=== PATIENT | male | born 1935 | race Caucasian/White ===

== ENCOUNTER → 2019-02-25 | Outpatient (CLI) | payer MEDICARE, BC ==
--- NOTE | 2019-02-25 14:43 | US ---
EXAMINATION TYPE: US carotid duplex BILAT DATE OF EXAM: 02/25/2019 COMPARISON: NONE CLINICAL HISTORY: 83-year-old male I65.29 Carotid Stenosis. Known right ICA occluded x 8-10 years TECHNIQUE: Carotid duplex ultrasound examination. Direct Doppler criteria was utilized. FINDINGS: EXAM MEASUREMENTS: RIGHT: Peak Systolic Velocity (PSV) cm/sec ----- Right CCA: 47.6 ----- Right ICA: n/a ----- Right ECA: 98.6 ICA/CCA ratio: n/a RIGHT: End Diastole cm/sec ----- Right CCA: 0.0 ----- Right ICA: n/a ----- Right ECA: 11.4 LEFT: Peak Systolic Velocity (PSV) cm/sec ----- Left CCA: 81.5 ----- Left ICA: 98.4 ----- Left ECA: 79.8 ICA/CCA ratio: 1.2 LEFT: End Diastole cm/sec ----- Left CCA: 27.2 ----- Left ICA: 39.1 ----- Left ECA: 19.3 VERTEBRALS (direction of flow): Right Vertebral: Antegrade Left Vertebral: Antegrade Rhythm: Normal Microbiology Instructor notes: Occluded right ICA, bilateral intimal thickening, minimal plaque left bulb, no brenda vated velocities, no significant stenosis. IMPRESSION: 1. Known occlusion of the right ICA. 2. No hemodynamically significant ICA stenosis on the left. Criteria for Assigning % of Stenosis / Diameter reduction (Estimation based on the indirect measurements of the internal carotid artery velocities (ICA PSV). 1. Normal (no stenosis)=ICA PSV < 125 cm/s: ratio < 2.0: ICA EDV<40 cm/s. 2. Less than 50% stenosis=ICA PSV < 125 cm/s: ratio < 2.0: ICA EDV<40 cm/s. 3. 50 to 69% stenosis=ICA PSV of 125 to 230 cm/s: ration 2.0 ? 4.0: ICA EDV 40-100 cm/s. 4. Greater than 70% stenosis to near occlusion= ICA PSV > 230 cm/s: ratio > 4.0: ICA EDV > 100 cm/s. 5. Near occlusion= ICA PSV velocities may be low or undetectable: variable ratio and ICA EDV. 6. Total occlusion=unable to detect flow.
== END | disposition home or self-care (01) ==
LOC: RADUSWWP 12:34
PROVIDERS: ATTEND Internal Medicine
DX: I65.21 Occlusion and stenosis of right carotid artery (principal)
CPT/HCPCS: 93880

== ENCOUNTER → 2020-04-14 | Outpatient (CLI) | payer MEDICARE, BC ==
--- NOTE | 2020-04-15 08:03 | US ---
EXAMINATION TYPE: US carotid duplex BILAT DATE OF EXAM: 04/14/2020 COMPARISON: 02/25/2019 CLINICAL HISTORY: I65.29 CAROTID STENOSIS. Stenosis, history of right ICA occlusion EXAM MEASUREMENTS: RIGHT: Peak Systolic Velocity (PSV) cm/sec ----- Right CCA: 44.1 ----- Right ICA: ----- Right ECA: 125.3 ICA/CCA ratio: RIGHT: End Diastole cm/sec ----- Right CCA: 0.0 ----- Right ICA: ----- Right ECA: 18.7 LEFT: Peak Systolic Velocity (PSV) cm/sec ----- Left CCA: 87.5 ----- Left ICA: 97.7 ----- Left ECA: 75.1 ICA/CCA ratio: 1.1 LEFT: End Diastole cm/sec ----- Left CCA: 24.8 ----- Left ICA: 30.0 ----- Left ECA: 7.4 VERTEBRALS (direction of flow): Right Vertebral: Antegrade Left Vertebral: Antegrade Rhythm: Normal Bilateral intimal thickening, plaque bilateral bulb, no elevated velocities, occluded right ICA Right thyroid: 2.6 x 1.9 x 2.2cm nodule Left neck: 2.3 x 1.0 x 1.3cm lymph node IMPRESSION: 1. No flow is identified within the right internal carotid artery compatible with previous obstructio n. 2. Intimal thickening within the left carotid system without significant flow-limiting stenosis. 3. Incidental note is made of thyroid nodules and a left neck node. Criteria for Assigning % of Stenosis / Diameter reduction (Estimation based on the indirect measurements of the internal carotid artery velocities (ICA PSV). 1. Normal (no stenosis)=ICA PSV < 125 cm/s: ratio < 2.0: ICA EDV<40 cm/s. 2. Less than 50% stenosis=ICA PSV < 125 cm/s: ratio < 2.0: ICA EDV<40 cm/s. 3. 50 to 69% stenosis=ICA PSV of 125 to 230 cm/s: ration 2.0 ? 4.0: ICA EDV 40-100 cm/s. 4. Greater than 70% stenosis to near occlusion= ICA PSV > 230 cm/s: ratio > 4.0: ICA EDV > 100 cm/s. 5. Near occlusion= ICA PSV velocities may be low or undetectable: variable ratio and ICA EDV. 6. Total occlusion=unable to detect flow.
== END | disposition home or self-care (01) ==
LOC: RADUSWWP 15:53
PROVIDERS: ATTEND Internal Medicine
DX: I77.89 Other specified disorders of arteries and arterioles (principal)
CPT/HCPCS: 93880

== ENCOUNTER → 2020-04-20 | Outpatient (CLI) | payer MEDICARE, BC ==
[2020-04-20 12:55] LABS: Appearance,Urine Clear (Clear); Bilirubin,Urine Negative (Negative); Blood,Urine Negative (Negative); Color,Urine Yellow; Glucose,Urine (UA) Negative (Negative); HCT 44.2 % (39.0-53.0); HGB 13.9 gm/dL (13.0-17.5); Ketones,Urine Negative (Negative); Leukocyte Esterase,Urine Negative (Negative); MCH 34.3 pg (25.0-35.0); MCHC 31.6 g/dL (31.0-37.0); MCV 108.6 fL (80.0-100.0); Macrocytosis Moderate; Mean Platelet Volume 8.5; Nitrite,Urine Negative (Negative); PH, Urine 5.5 (5.0-8.0); Platelet Count 284 k/uL (150-450); Protein,Urine Negative (Negative); RBC 4.07 m/uL (4.30-5.90); RDW 12.1 % (11.5-15.5); Specific Gravity,Urine 1.023 (1.001-1.035); Urobilinogen,Urine <2.0 mg/dL (<2.0); WBC 6.2 k/uL (3.8-10.6)
[2020-04-20 13:01] LABS: INR 0.9 (<1.2); Partial Thromboplastin Time 25.5 sec (22.0-30.0); Prothrombin Time 9.7 sec (9.0-12.0)
[2020-04-20 13:06] LABS: ALT 18 U/L (4-49); AST 31 U/L (17-59); African American GFR (CKD) >90 (>60 ml/min/1.73 sqM); Alkaline Phosphatase 95 U/L (38-126); Anion Gap 6 mmol/L; Blood Urea Nitrogen 20 mg/dL (9-20); Carbon Dioxide 29 mmol/L (22-30); Chloride 104 mmol/L (98-107); Glucose 100 mg/dL (74-99); Non-African American GFR(CKD) 88 (>60 ml/min/1.73 sqM); Potassium 4.6 mmol/L (3.5-5.1); Sodium 139 mmol/L (137-145); Total Bilirubin 0.6 mg/dL (0.2-1.3); Total Protein 6.9 g/dL (6.3-8.2)
== END | disposition home or self-care (01) ==
LOC: LABPAT 11:03
PROVIDERS: ATTEND Orthopaedic Surgery Sports Medicine
DX: Z01.818 Encounter for other preprocedural examination (principal)
CPT/HCPCS: 36415; 80053; 81003; 85027; 85610; 85730; 87070

== ENCOUNTER 2020-04-28 09:51 | Day surgery (SDC) | payer MEDICARE, BC ==
[2020-04-21 13:01] VITALS: BMI 27.8
[~2020-04-28 09:51] MED LIST: ACETAMINOPHEN TAB 500 MG TAB PO ONE; GABAPENTIN 300 MG CAP PO ONE; MELOXICAM 7.5 MG TAB PO ONE; ONDANSETRON 4 MG/2 ML VIAL IVP ONE; ROPIVACAINE 246.25 MG, EPINEPHrine 0.5 MG, KETOROLAC 30 MG, cloNIDine HCL/PF 80 MCG, WA... MISCELLANE ONE; TRANEXAMIC ACID 1,000 MG in SODIUM CHLORIDE 0.9% 100 ML IVPB ONE
[2020-04-28] MEDS ORDERED: ONDANSETRON 4 MG/2 ML VIAL ONE (10:24)
[2020-04-28] MEDS ORDERED: ACETAMINOPHEN TAB 500 MG TAB ONE (10:24)
[2020-04-28] MEDS: LACTATED RINGERS 1,000 ML IV SCH ×2 (10:59→16:23)
[2020-04-28] MEDS ORDERED: LIDOCAINE 1% (10MG/ML) FOR IV START INTRADERMA ONE (11:00)
[2020-04-28] MEDS ORDERED: MIDAZOLAM 2 MG/2 ML VIAL IV ONE (11:25)
[2020-04-28] MEDS ORDERED: fentaNYL (PF) 50 MCG/ML 2 ML AMP IV ONE (11:25)
[2020-04-28] MEDS ORDERED: HYDROcodone/APAP 5-325MG 1 EACH TAB PO PRN (12:17)
[2020-04-28] MEDS ORDERED: traMADol 50 MG TAB PO PRN (12:17)
[2020-04-28] MEDS ORDERED: ACETAMINOPHEN TAB 325 MG TAB PO PRN (12:17)
[2020-04-28] MEDS ORDERED: HYDROmorphone 0.5 MG/0.5 ML SYRINGE IVP PRN ×3 (12:17)
[2020-04-28] MEDS ORDERED: diazePAM 5 MG TAB PO PRN (12:17)
[2020-04-28] MEDS ORDERED: MAGNESIUM HYDROXIDE 2,400 MG/10 ML CUP PO PRN (12:17)
[2020-04-28] MEDS ORDERED: ONDANSETRON 4 MG/2 ML VIAL IVP PRN (12:17)
[2020-04-28] MEDS ORDERED: NALOXONE 0.4 MG/ML 1 ML VIAL IV PRN (12:17)
[2020-04-28] MEDS ORDERED: TEMAZEPAM 15 MG CAP PO PRN (12:17)
[2020-04-28] MEDS ORDERED: NA PHOS,M-B/NA PHOS,DI-BA 133 ML ENEMA RECTAL PRN (12:17)
[2020-04-28] MEDS ORDERED: bisacodyL 10 MG SUPP RECTAL PRN (12:17)
[2020-04-28] MEDS ORDERED: SUCCINYLCHOLINE CHLORIDE 100 MG/5 ML SYR IV ONE (12:29)
[2020-04-28] MEDS ORDERED: LIDOCAINE 1% INJ 10MG/ML (20 ML MDV) ONE (12:29)
[2020-04-28] MEDS ORDERED: fentaNYL (PF) 50 MCG/ML 2 ML AMP ONE (12:29)
[2020-04-28] MEDS ORDERED: MIDAZOLAM 2 MG/2 ML VIAL ONE (12:29)
[2020-04-28] MEDS ORDERED: PROPOFOL 10 MG/ML 20 ML VIAL IV ONE (12:29)
[2020-04-28] MEDS ORDERED: ROCURONIUM BROMIDE 10 MG/ML 5 ML VIAL IV ONE (12:29)
[2020-04-28] MEDS ORDERED: PHENYLEPHRINE-0.9% NACL SYG 1 MG/10 ML SYRINGE ONE (12:29)
[2020-04-28] MEDS ORDERED: LACTATED RINGERS 1,000 ML IV ONE ×2 (12:50→14:07)
[2020-04-28] MEDS ORDERED: ceFAZolin 3,000 MG in SODIUM CHLORIDE 0.9% IRRIGATIO 3,000 ML IRRIGATION ONE (13:02)
[2020-04-28] MEDS ORDERED: ROPIVACAINE 0.2%-NS ON-Q PUMP 1,090 MG, EMPTY PAIN BALL 1 EACH MISCELLANE PRN (14:29)
[2020-04-28] MEDS: HYDROmorphone 0.5 MG/0.5 ML SYRINGE IVP PRN ×4 (14:37→15:11)
--- NOTE | 2020-04-28 14:50 | XR ---
EXAMINATION TYPE: XR knee limited LT DATE OF EXAM: 04/28/2020 COMPARISON: NONE HISTORY: 85-year-old male evaluation for postoperative abnormality in alignment TECHNIQUE: 2 views FINDINGS: Images show placement of left total knee arthroplasty. Both distal femoral and proximal tibial compon ents of the prosthesis appear well seated without periprosthetic fracture. Alignment grossly anatomic . Anterior soft tissue swelling with scattered soft tissue air as well as intra-articular air and keerthi nt fluid compatible with recent operation. IMPRESSION: Uncomplicated postoperative appearance left total knee arthroplasty.
[2020-04-28] MEDS ORDERED: diphenhydrAMINE 50 MG/ML 1 ML VIAL IVP ONE (15:16)
--- NOTE | 2020-04-28 16:04 | P.ANPRN ---
Procedure Note - Anesthesia - Nerve Block Performed Left Adductor Canal Infusion Time Out Performed: Yes Date of Procedure: 04/28/20 Procedure Start Time: 11:25 Procedure Stop Time: 11:38 Location of Patient: PreOp Indication: Acute Post-Operative Pain, Dx/Pain Location, Requested by Surgeon Sedation Type: Sedate with meaningful contact maintained Preparation: Sterile Prep, Sterile Dressing Position: Supine Catheter: Indwelling Needle Types: Pajunk Needle Gauge: 21 Ultrasound used to visualize needle placement: Yes Ultrasound used to observe medication spread: Yes Injectate: 0.5% Ropivacaine (see comment for volume) (20ml) Blood Aspirated: No Pain Paresthesia on Injection Noted: No Resistance on Injection: Normal
--- NOTE | 2020-04-28 16:59 | P.CONS ---
History of Present Illness - Reason for Consult Consult date: 04/21/20 Medical management - Chief Complaint Left knee osteoarthritis - History of Present Illness This is a 85-year-old male with past medical history noted below who was admitted to the hospital for elective total left knee arthroplasty. Patient is postoperative day #0. He tolerated the procedure well. No reported complications. He does not have any complaints or concerns. I was asked to see him for medical management. Review of Systems Review of system: 14 points review of systems were obtained and were negative except to what were mentioned in the HPI. Past Medical History Past Medical History: Cancer, Hyperlipidemia, Hypertension, Osteoarthritis (OA), Prostate Disorder Additional Past Medical History / Comment(s): PROSTATE CANCER History of Any Multi-Drug Resistant Organisms: None Reported Past Surgical History: Hernia Repair, Joint Replacement Additional Past Surgical History / Comment(s): TOTAL RIGHT HIP, TOTAL LEFT HIP, INGUINAL HERNIA REPAIR, TLK Past Anesthesia/Blood Transfusion Reactions: No Reported Reaction Past Psychological History: No Psychological Hx Reported Smoking Status: Former smoker Past Alcohol Use History: Rare Additional Past Alcohol Use History / Comment(s): STARTED SMOKING AT AGE 18 QUIT AT AGE 33 SMOKED 1PPD Past Drug Use History: None Reported - Past Family History Sister(s) Family Medical History: Cancer Medications and Allergies Home Medications Medication Instructions Recorded Confirmed Type Cholecalciferol [Vitamin D3 (25 2,000 unit PO DAILY 04/21/20 04/28/20 History Mcg = 1000 Iu)] Clopidogrel Bisulfate [Plavix] 75 mg PO DAILY 04/21/20 04/28/20 History Finasteride [Proscar] 5 mg PO DAILY 04/21/20 04/28/20 History Lisinopril [Zestril] 10 mg PO DAILY 04/21/20 04/28/20 History Simvastatin 40 mg PO Q48H 04/21/20 04/28/20 History Allergies Allergy/AdvReac Type Severity Reaction Status Date / Time No Known Allergies Allergy Verified 04/28/20 10:47 Physical Exam Vitals: Vital Signs Temp Pulse Pulse Resp BP BP Pulse Ox 04/28/20 15:50 82 16 160/91 100 04/28/20 15:35 81 16 170/83 99 04/28/20 15:20 80 16 164/85 99 04/28/20 15:05 85 16 167/86 100 07/09/20 14:50 82 18 170/79 100 04/28/20 14:35 85 16 173/67 100 04/28/20 14:19 97.0 F L 88 17 170/81 95 04/28/20 11:45 78 16 150/78 99 04/28/20 10:21 98.3 F 85 16 170/83 95 04/28/20 10:17 16 Intake and Output 04/28/20 04/28/20 04/28/20 06:59 14:59 22:59 Intake Total 2050 300 Output Total 100 Balance 1950 300 Intake: IV 2050 300 Output: Estimated Blood Loss 100 Other: Weight 93 kg 93 kg General: The patient is awake and alert, in no distress Eye: there is normal conjunctiva bilaterally. Neck: The neck is supple, there is no JVD. Cardiovascular: Normal S1-S2, no S3-S4, no murmurs. Respiratory: Lungs clear to auscultation bilaterally Gastrointestinal: Abdomen is soft, nontender Musculoskeletal: There is no pedal edema. Neurological:. Speech is normal. Skin: Skin is warm and dry Assessment and Plan Assessment: 1. Postoperative day #0 status post total left knee arthroplasty, postoperative care, DVT prophylaxis, and pain control per orthopedic protocol. PT/OT evaluation 2. History of stroke: Maintained on Plavix daily 3. Essential hypertension, blood pressure not well controlled. Resume home regimen and continue to monitor closely 4. Hyperlipidemia on Zocor, continue Thank you very much for the consultation. We'll continue to follow up on the patient closely with you.
--- NOTE | 2020-04-28 20:48 | OP ---
OPERATIVE REPORT DATE OF PROCEDURE: 04/28/2020 SURGEON: Elijah Tellez MD. SCHOOL LEADER: Lalo Roper PA-C. PREOPERATIVE DIAGNOSIS: Left knee osteoarthrosis. POSTOPERATIVE DIAGNOSIS: Left knee osteoarthrosis. OPERATION: Left total knee arthroplasty. ANESTHESIA: General endotracheal. ESTIMATED BLOOD LOSS: 100 mL. TOURNIQUET: Tourniquet time was 44 minutes at 250 mmHg. COMPLICATIONS: None apparent. DRAINS: None. DISPOSITION: Post-Anesthesia Care Unit. INDICATIONS: Royal is an 85-year-old male with longstanding history of left knee pain. History and physical examination are consistent with advanced left knee osteoarthrosis. He has been through significant nonoperative management up to this point. Further treatment options were discussed and he has decided to go forward with left total knee arthroplasty. The risks of the procedure were discussed with him in detail. These risks include but are not limited to risk of infection, nerve damage, bleeding, pain, and a small risk of deep vein thrombosis which could lead to fatal pulmonary embolism. There is also a risk of loosening of the implant which could require revision operation. The patient understands these risks. All of his questions were answered to his satisfaction. Appropriate informed consent was obtained. DESCRIPTION OF THE PROCEDURE: The patient was identified in the preoperative holding area. Surgical site was marked by both the patient and myself. He was given 2 grams of Ancef IV for prophylactic purposes. He was then transferred to the operative suite, where he was placed supine on the operating room table. A spinal anesthetic was then administered and dosed per the anesthesia department without apparent complication. Examination under anesthesia was then performed. The patient was approximately 5 degrees shy of full extension. He had 100 degrees of flexion, and the medial collateral ligament, lateral collateral ligament and posterior cruciate ligaments were stable. Tourniquet was then placed high on the left upper thigh, well padded in preparation for surgery. The patient's left lower extremity was then prepped and draped in the usual sterile fashion. A standard surgical pause was then undertaken to ensure that we were operating on the correct site and that appropriate preoperative antibiotics had been given. All staff in the room were in agreement and we proceeded. The outlines of the patella were marked with a surgical pen. A planned 12 cm vertical incision centered over the patella was marked with a surgical pen. The leg was then exsanguinated with an Esmarch dressing. The knee was then flexed and the tourniquet was inflated to 250 mmHg. The total tourniquet time for the procedure was 44 minutes. Incision was then made with a 10-blade scalpel. Dissection was carried down sharply to the overlying fascia. Great care was taken to minimize the skin flaps. The knee was then exposed using a standard medial parapatellar approach. A small cuff of quadriceps tendon was then left for suturing. He was in a bit of varus preoperatively. A standard medial release was then made. The superficial medial collateral ligament was dissected off of the bone and around to the posterior aspect of the proximal tibia. The medial meniscus was then excised as well. The lateral meniscus was also released anteriorly. The leg was then externally rotated. The patella was everted. The knee was flexed. Retractors were then placed to protect the collateral ligaments. I then proceeded to remove the infrapatellar fat pad. This was excised sharply tangentially with the fibers of the patellar tendon. I then proceeded to remove the peripheral osteophytes. This was done with a rongeur. I then proceeded with the distal femoral resection. He did have a flexion contracture. A planned 11 mm resection was then done. The femoral canal was then entered in the midline of the femur approximately 10 mm anterior to the origin of the posterior cruciate ligament. The lisa was then advanced down to the center of the femur and placed intramedullary. Based on the preoperative radiographs, the angle between the anatomic and mechanical axis of the femur was approximately 4-5 degrees. The valgus angle of the distal femoral cutting guide was then set at 4 degrees for the left knee. The distal femoral cutting guide was then advanced over the intramedullary lisa. This was seated firmly against the femur. I then, as mentioned, planned to take 11 mm off the distal femur. The cutting block was then secured onto the femur with pins. The jig was then removed and the distal femoral cut was made through the slot of the block. The pins were then removed and the distal femoral cutting block was removed. The accuracy of the distal femoral cuts was checked with 2 flat bars. I then proceeded with femoral sizing. The posterior referencing sizing guide was held firmly against the resected distal surface of the femur. The posterior condyles were resting on the posterior plane of the guide. The sizing stylus was then placed onto the anterior femur. The size was measured as a size 10. I then assessed for femoral rotation. The plan was for 3 degrees of external rotation. Three degrees of external rotation was placed onto the jig. These holes were then marked. I then confirmed the rotation by 3 separate methods. This was done using the epicondylar axis as well as Whitesides line and posterior referencing. It was deemed that the external rotation was proper. I then went forward with placing the femoral cutting block. This was placed over the previously placed pin holes. The Jones wing was then placed onto the anterior slots to ensure that we would not notch the anterior femur with the anterior femoral cut. I then proceeded with the anterior femoral cut. This was flush with the anterior cortex of the femur. Posterior cuts were then made followed by the anterior chamfer cut, and then the posterior chamfer cut. The cutting block was then removed. Throughout the resection, collateral ligaments were protected with retractors. I then placed a trial size 10 femur. It fit very nicely medial to lateral and fit flush with the distal end of the femur. The drill holes were then made. I then proceeded with the tibial cut. I planned for a cruciate-retaining knee. The guide was placed and set for varus, valgus and for slope. The height was set for an approximate 2 mm resection from the medial tibial plateau, which was the lower side. I was happy with the alignment and the amount of resection. Cutting block was then pinned to the proximal tibia. The alignment lisa was removed and the proximal tibia was resected with a reciprocating saw. Again this was done with retractors protecting the collateral ligaments as well as the posterior cruciate ligament. I then proceeded to evaluate the flexion and extension gaps. A 10 mm block was then placed. The flexion and extension gaps were equal. I then proceeded with resection of the posterior osteophytes. He had very extensive posterior osteophytes. This was done using a curved osteotome. This resected the posterior osteophytes, and posterior capsule stripping was done off the posterior aspect of the femur at this time. The osteophytes were then removed. I then proceeded with resection of the patella. The thickness of the patella was measured using the caliper. The thickness was 25 mm. Thickness of the anticipated patellar dome was then taken into account. Resection was then performed and confirmed to be equal in 4 quadrants using a caliper. Approximately 14 mm of bone remained after resection. A 35 x 9 standard patellar trial was then placed. The holes were drilled and the trial was then placed. I then proceeded with sizing the tibial plate. A size F tibial plate fit very nicely. I then placed the trial femur and the tibial tray and the patellar button. A 10 mm trial tibial insert was also placed. The components fit very nicely. He had full extension and flexion. The extension and flexion gaps were equal and stable to both varus and valgus stress. The patella tracked appropriately. The tibial tray rotation was then marked with a Bovie. This was externally rotated properly. I then proceeded with tibial preparation. I first drilled the femoral holes and removed the femoral component. The tibial tray was then set for proper external rotation as well as mediolateral placement onto the tibia. It was then pinned into place. I then proceeded with punching the keel. I then decided to proceed with cementing of all of our components. The knee was thoroughly irrigated with sterile saline solution via pulse lavage. The lateral geniculate artery was identified and cauterized. All blood was removed from the bone of the tibia, femur and patella with pulse lavage. I then proceeded with cementing. Two packs of antibiotic bone cement were prepared on the back table by the assistant professor surgical technology. I then proceeded with cementing of the tibia first. Cement was impacted into the keel as well as deeply seated into the bone. A second coat of cement was then placed. The tibia was then impacted into place. Excess cement was removed with Alena's and jokers. I then proceeded with cementing of the femoral component. The femoral component was also cemented using standard technique. Excess cement was removed. A 10 mm trial insert was then placed into the knee. It was brought into full extension with a constant axial load placed until the cement had hardened. The patellar component was then cemented. This was held firmly with a compressive device until the cement had dried. When the cement had dried, the knee was taken out of extension. All excess cement was removed from around the prosthesis. I then trialed the knee with a 10 mm insert. The flexion and extension gaps were appropriate. The knee was stable. It came into full extension. I decided to go forward with a 10 mm cross-linked cruciate-retaining tibial insert. Polyethylene was then placed onto the tibial tray and locked into place. The knee was then reduced. The knee was again further irrigated with sterile saline solution with antibiotic added. The tourniquet was then deflated. The total tourniquet time for the procedure was 44 minutes at 250 mmHg. Final components were a Luis Persona size 10 cruciate-retaining femoral component, a size F tibial tray, a 10 mm medial-congruent cruciate-retaining polyethylene insert, and a 35 x 9 mm patella. I then proceeded with closure. Again the knee was thoroughly irrigated. The quadriceps tendon and the medial retinaculum were reapproximated with #2 Ethibond suture. The extensor mechanism was then closed with a running #2 Quill suture. Subcutaneous tissues were closed with 2-0 Vicryl interrupted suture. The skin was closed with a running 3-0 Quill suture. Dermabond was applied to the incision. Sterile compressive dressings were then applied. All sponge and needle counts were deemed correct prior to closure. The patient tolerated the procedure without apparent complication. He was transferred to the recovery room in stable condition. MMODL / IJN: [id number] /
[2020-04-28] MEDS ORDERED: SENNOSIDES-DOCUSATE SODIUM 1 EACH TAB PO SCH (21:00)
[2020-04-28] MEDS ORDERED: ATORVASTATIN 20 MG TAB PO SCH (21:00)
[2020-04-29] MEDS: HYDROcodone/APAP 10-325MG 1 EACH TAB PO PRN ×3 (01:21→13:25)
[2020-04-29] MEDS: LACTATED RINGERS 1,000 ML IV SCH ×3 (02:09→07:10)
--- NOTE | 2020-04-29 06:09 | P.PN ---
Progress Note - Text Progress Note Date: 04/29/20 85-year-old male status post left knee total arthroplasty with On-Q pain pump. Postop day #1. VAS ranges from a 4-7 out of 10 in severity. Pain mostly located in the lateral and posterior components of the knee. Good pain relief medially and anteriorly. Patient has been ambulating to the bathroom, and tolerating weightbearing. Overall patient doing okay
[2020-04-29 06:10] VITALS: RESP 16
[2020-04-29 06:16] LABS: Basophils % (A) 0 %; Eosinophils # (A) 0.1 k/uL (0-0.7); Eosinophils % (A) 2 %; HCT 36.1 % (39.0-53.0); HGB 11.7 gm/dL (13.0-17.5); Lymphocytes # (A) 0.9 k/uL (1.0-4.8); Lymphocytes % (A) 16 %; MCH 34.6 pg (25.0-35.0); MCHC 32.5 g/dL (31.0-37.0); MCV 106.6 fL (80.0-100.0); Macrocytosis Slight; Monocytes # (A) 0.5 k/uL (0-1.0); Monocytes % (A) 8 %; Neutrophils # (A) 4.1 k/uL (1.3-7.7); Neutrophils % (A) 71 %; Platelet Count 191 k/uL (150-450); RBC 3.38 m/uL (4.30-5.90); WBC 5.7 k/uL (3.8-10.6)
[2020-04-29 06:24] LABS: African American GFR (CKD) >90 (>60 ml/min/1.73 sqM); Anion Gap 5 mmol/L; Blood Urea Nitrogen 14 mg/dL (9-20); Calcium 8.2 mg/dL (8.4-10.2); Carbon Dioxide 27 mmol/L (22-30); Chloride 101 mmol/L (98-107); Glucose 96 mg/dL (74-99); Non-African American GFR(CKD) >90 (>60 ml/min/1.73 sqM); Potassium 4.4 mmol/L (3.5-5.1); Sodium 133 mmol/L (137-145)
[2020-04-29] MEDS ORDERED: FINASTERIDE 5 MG TAB PO SCH (09:00)
[2020-04-29] MEDS ORDERED: CHOLECALCIFEROL 1,000 UNIT TAB PO SCH (09:00)
[2020-04-29] MEDS ORDERED: lisinopriL 10 MG TAB PO SCH (09:00)
[2020-04-29] MEDS ORDERED: CLOPIDOGREL 75 MG TAB PO SCH (09:00)
[2020-04-29 09:19] VITALS: BP 166/85; PULSE 80; TEMP 98.5
--- NOTE | 2020-04-29 09:22 | P.DS ---
Providers Expected date of discharge: 04/29/20 Attending physician: Elijah Tellez Consults: 04/28/20 12:17 Consult Physician Routine Consulting Provider: Steffi Flores Consult Reason/Comments: post op medical management Do you want consulting provider notified?: Yes Primary care physician: Loy Figueroa - Discharge Diagnosis(es) (1) S/P total knee arthroplasty Patient was admitted to the OR on 04/28/2020 to undergo a left total knee arthroplasty. He had failed conservative measures as an outpatient and desired to proceed with elective surgery after given informed consent. He underwent the above procedure which he tolerated well without complication. Postoperative hospital course has remained without complication. On day of discharge he is afebrile, vital signs stable, labs within acceptable ranges, tolerating by mouth meds and diet, voiding without difficulty, positive flatus, denies abdominal pain or calf pain, pain is controlled on oral pain medication and has no new complaints. Wound is benign, neurovascular status is intact, calf is soft and nontender, abdomen soft and nontender. Review of systems is negative for numbness, tingling, fever, chills, chest pain, shortness of breath, nausea, vomiting, dizziness, headaches, slurred speech or other. Current Visit: Yes Status: Acute Priority: Medium Patient Condition at Discharge: Good Plan - Discharge Summary Discharge Rx Participant: Yes New Discharge Prescriptions: New HYDROcodone/APAP 7.5-325MG [Nada 7.5-325] 1 - 2 each PO Q6HR PRN #56 tab PRN Reason: Pain No Action Cholecalciferol [Vitamin D3 (25 Mcg = 1000 Iu)] 2,000 unit PO DAILY Simvastatin 40 mg PO Q48H Finasteride [Proscar] 5 mg PO DAILY Lisinopril [Zestril] 10 mg PO DAILY Clopidogrel Bisulfate [Plavix] 75 mg PO DAILY Discharge Medication List Cholecalciferol [Vitamin D3 (25 Mcg = 1000 Iu)] 2,000 unit PO DAILY 04/21/20 [History] Clopidogrel Bisulfate [Plavix] 75 mg PO DAILY 04/21/20 [History] Finasteride [Proscar] 5 mg PO DAILY 04/21/20 [History] Lisinopril [Zestril] 10 mg PO DAILY 04/21/20 [History] Simvastatin 40 mg PO Q48H 07/02/20 [History] HYDROcodone/APAP 7.5-325MG [Nada 7.5-325] 1 - 2 each PO Q6HR PRN #56 tab 04/29/20 [Rx] Follow up Appointment(s)/Referral(s): Elijah Tellez MD [STAFF PHYSICIAN] - 10 Days Activity/Diet/Wound Care/Special Instructions: Keep wound clean and dry Take meds as directed Follow-up with Dr. Tellez in office Weight bear as tolerated May shower in 3 days if no bleeding Discharge Disposition: HOME WITH HOME HEALTH SERVICES
--- NOTE | 2020-04-29 09:35 | P.PN ---
Subjective Progress Note Date: 04/29/20 Patient is doing fairly well today. Pain is not well controlled. Objective - Vital Signs Vital signs: Vital Signs Temp 98.5 F 04/29/20 07:00 Pulse 80 04/29/20 07:00 Resp 16 04/29/20 07:00 BP 166/85 04/29/20 07:00 Pulse Ox 96 04/29/20 07:00 Intake & Output 04/28/20 04/29/20 04/29/20 18:59 06:59 18:59 Intake Total 2351 200 Output Total 100 875 350 Balance 2251 -875 -150 Weight 93 kg Intake: IV 2351 Oral 200 Output: Urine 875 350 Estimated Blood Loss 100 Other: Voiding Method Urinal - Exam General: The patient is awake and alert, in no distress Eye: there is normal conjunctiva bilaterally. Neck: The neck is supple, there is no JVD. Cardiovascular: Normal S1-S2, no S3-S4, no murmurs. Respiratory: Lungs clear to auscultation bilaterally Gastrointestinal: Abdomen is soft, nontender Musculoskeletal: There is no pedal edema on the right. +2 edema on the left Neurological:. Speech is normal. Skin: Skin is warm and dry - Labs CBC & Chem 7: 04/29/20 06:04 04/29/20 06:04 Labs: Abnormal Lab Results - Last 24 Hours (Table) 04/29/20 04/29/20 Range/Units 06:04 06:04 RBC 3.38 L (4.30-5.90) m/uL Hgb 11.7 L (13.0-17.5) gm/dL Hct 36.1 L (39.0-53.0) % MCV 106.6 H (80.0-100.0) fL Lymphocytes # 0.9 L (1.0-4.8) k/uL Sodium 133 L (137-145) mmol/L Creatinine 0.60 L (0.66-1.25) mg/dL Calcium 8.2 L (8.4-10.2) mg/dL Assessment and Plan Assessment: 1. Postoperative day #1 status post total left knee arthroplasty, postoperative care, DVT prophylaxis, and pain control per orthopedic protocol. PT/OT evaluat ion 2. History of stroke: Maintained on Plavix daily 3. Essential hypertension, blood pressure within acceptable range. Resume home regimen and continue to monitor closely 4. Hyperlipidemia on Zocor, continue Discharge planning per primary team
[2020-04-29] MEDS ORDERED: MULTIVITAMINS, THERA 1 EACH TAB PO SCH (12:00)
== END 2020-04-29 15:17 | disposition home health service (06) ==
LOC: OR 09:51 → 4SSUR 14:47 → OR 04-29 15:17
PROVIDERS: ATTEND Orthopaedic Surgery Sports Medicine
DX: M17.12 Unilateral primary osteoarthritis, left knee (principal); M25.762 Osteophyte, left knee; I10 Essential (primary) hypertension; E78.2 Mixed hyperlipidemia; I25.10 Atherosclerotic heart disease of native coronary artery without angina pectoris; I08.0 Rheumatic disorders of both mitral and aortic valves; I65.23 Occlusion and stenosis of bilateral carotid arteries; Z79.899 Other long term (current) drug therapy; Z79.02 Long term (current) use of antithrombotics/antiplatelets; Z86.718 Personal history of other venous thrombosis and embolism; Z85.46 Personal history of malignant neoplasm of prostate; Z97.3 Presence of spectacles and contact lenses; Z86.73 Personal history of transient ischemic attack (TIA), and cerebral infarction without residual deficits; Z96.643 Presence of artificial hip joint, bilateral; Z98.890 Other specified postprocedural states; Z87.19 Personal history of other diseases of the digestive system; Z87.891 Personal history of nicotine dependence; Z82.61 Family history of arthritis; Z84.2 Family history of other diseases of the genitourinary system; Z80.9 Family history of malignant neoplasm, unspecified
CPT/HCPCS: 27447; 64448; 97110; 97161; 76942; 80048; 85025; 88300; 73560; C1776; C1713; S0138; J2250; J0171; J1200; J0690 ×3; J2405; J2001; J3010; J1885; J2795 ×2; J2370; J0330; J2704; J0735; J1170

== ENCOUNTER → 2021-03-29 | Outpatient (CLI) | payer MEDICARE, BC ==
--- NOTE | 2021-03-29 14:52 | US ---
EXAMINATION TYPE: US carotid duplex BILAT DATE OF EXAM: 03/29/2021 COMPARISON: Carotid ultrasound April 14, 2020 CLINICAL HISTORY: I65.23 Occlusion and Stenosis. EXAM MEASUREMENTS: RIGHT: Peak Systolic Velocity (PSV) cm/sec ----- Right CCA: 47.4 ----- Right ICA: --- ----- Right ECA: 84.9 ICA/CCA ratio: --- RIGHT: End Diastole cm/sec ----- Right CCA: 0.0 ----- Right ICA: --- ----- Right ECA: 10.3 LEFT: Peak Systolic Velocity (PSV) cm/sec ----- Left CCA: 80.9 ----- Left ICA: 135.1 ----- Left ECA: 83.0 ICA/CCA ratio: 1.7 LEFT: End Diastole cm/sec ----- Left CCA: 16.7 ----- Left ICA: 34.5 ----- Left ECA: 0.0 VERTEBRALS (direction of flow): Right Vertebral: Antegrade Left Vertebral: Severe atherosclerotic changes with known occlusion on right, no significant velocity increases seen on left. 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 No hemodynamicall y significant stenosis on the left. No significant change from prior. Criteria for Assigning % of Stenosis / Diameter reduction (Estimation based on the indirect measurements of the internal carotid artery velocities (ICA PSV). 1. Normal (no stenosis)=ICA PSV < 125 cm/s: ratio < 2.0: ICA EDV<40 cm/s. 2. Less than 50% stenosis=ICA PSV < 125 cm/s: ratio < 2.0: ICA EDV<40 cm/s. 3. 50 to 69% stenosis=ICA PSV of 125 to 230 cm/s: ration 2.0 ? 4.0: ICA EDV 40-100 cm/s. 4. Greater than 70% stenosis to near occlusion= ICA PSV > 230 cm/s: ratio > 4.0: ICA EDV > 100 cm/s. 5. Near occlusion= ICA PSV velocities may be low or undetectable: variable ratio and ICA EDV. 6. Total occlusion=unable to detect flow.
--- NOTE | 2021-03-29 14:55 | US ---
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 GLAND SIZE: Right Lobe: 5.5 x 2.8 x 2.2 cm Overall Parenchyma: heterogenous Left Lobe: 3.9 x 1.7 x 1.7 cm Overall Parenchyma: heterogeneous Isthmus Thickness: 0.3 cm NODULES RIGHT: # of nodules measured on right: 3 1. 1.3 X 0.8 x 1.1 cm, upper mid, solid or almost completely solid, hypoechoic nodule, which is wid er than tall, with smooth margins, with echogenic foci. No prior 2. 1.4 X 0.9 x 1.3 cm, mid, solid or almost completely solid, hypoechoic nodule, which is wider radha n tall, with ill-defined margins, with echogenic foci. No prior 3. 1.0 X 0.8 x 1.1 cm, lower lateral, solid or almost completely solid, hypoechoic nodule, which is wider than tall, with smooth margins, without echogenic foci. No prior LEFT: # of nodules measured on left: 1 1. There is a hypoechoic area, that may be lateral to thyroid measuring 1.8 X 0.7 x 1.6 cm, solid o r almost completely solid, anechoic nodule, which is wider than tall, with lobulated or irregular mar gins, without echogenic foci. No prior ISTHMUS 1. 1.1X 0.6 x 1.0 cm, right, solid or almost completely solid, hypoechoic nodule, which is wider th an tall, with smooth margins, without echogenic foci. No prior Bilateral neck scanned, no evidence of lymphadenopathy. Heterogeneous thyroid with asymmetric right thyroid enlargement. Prior suspected single 2.6 cm right thyroid nodule is marked today as 3 distinct adjacent nodules. More suspicious lesion adjacent to lef t thyroid lobe of uncertain etiology. IMPRESSION: As above. Consider further investigation with contrast enhanced neck CT.
== END | disposition home or self-care (01) ==
LOC: RADUSWWP 13:34
PROVIDERS: ATTEND Internal Medicine
DX: E04.2 Nontoxic multinodular goiter (principal); I65.21 Occlusion and stenosis of right carotid artery
CPT/HCPCS: 76536; 93880

== ENCOUNTER → 2021-04-10 | Outpatient (CLI) | payer MEDICARE, BC ==
[2021-04-10 14:14] LABS: African American GFR (CKD) >90 (>60 ml/min/1.73 sqM); Blood Urea Nitrogen 20 mg/dL (9-20); Non-African American GFR(CKD) 90 (>60 ml/min/1.73 sqM)
--- NOTE | 2021-04-10 15:32 | CT ---
EXAMINATION TYPE: CT soft tissue neck w con DATE OF EXAM: 04/10/2021 COMPARISON: Thyroid ultrasound 03/29/2021 HISTORY: 86-year-old male E04.2, Non-toxic multinodular goiter. TECHNIQUE: Contiguous axial scanning of the soft tissues of the neck performed with IV Contrast, brianna ent injected with 100 mL of Isovue 300. Coronal/sagittal reconstructions performed. CT DLP: 466.20 mGycm Automated exposure control for dose reduction was used. FINDINGS: Visualized upper lungs show at least mild centrilobular emphysema. Known multinodular goiter. A cluster of nodules posteriorly at the right lower pole measures up to 3. 1 x 2.2 cm, referred to sagittal image 46 and axial image 31. There are enlarged right lobe of the th yroid gland has slight mass effect and slight flattening of the trachea. Hypodense nodule right mid pole measuring 2.4 cm contains some focal calcification. Enhancing lymph node to the left of the thyroid gland anterior to the carotid space and deep to the s ternocleidomastoid muscle measuring 1.4 cm short axis, axial image 47 and coronal image 33. This demo nstrates a fat plane with the adjacent jugular vein, sagittal image 58. Borderline enlarged 1.1 cm left supraclavicular lymph node, axial image 41, coronal image 35, and sag ittal image 62. The submandibular and parotid glands are mildly atrophic. Atherosclerotic changes at the right bifurcation. There appears to be occlusion of the right internal carotid artery. Reconstitution at the intracranial supraclinoid level. Visualized intracranial structures, orbits and globes, paranasal sinuses, mastoid air cells appear cl ear. Nasopharynx, oropharynx, glottic and subglottic structures as well as the tracheal column appear rudi r. Epiglottis and prevertebral soft tissues are normal. Bones: Moderate endplate spondylosis C5-C7 levels. Facet and uncovertebral joint arthropathy througho ut. IMPRESSION: 1. MULTINODULAR GOITER. THE ENLARGED RIGHT LOBE HAS MILD MASS EFFECT WITH SLIGHT FLATTENING OF THE TR ACHEA. NODULES MEASURE UP TO 3.1 CM RIGHT LOWER POLE POSTERIORLY AND 2.4 CM AT THE RIGHT MIDPOLE. THE LARGEST OF THESE NODULES SEEN ON ULTRASOUND CAN BE SAMPLED. 2. ENLARGED 1.4 CM LYMPH NODE ALONG THE LEFT SIDE OF THE THYROID GLAND SEEMS TO CORRESPOND TO THE ABN ORMALITY MENTIONED ON ULTRASOUND. CONSIDER TISSUE SAMPLING. 3. ADDITIONAL BORDERLINE ENLARGED 1.1 CM LEFT SUPRACLAVICULAR LYMPH NODE. 4. PROXIMAL RIGHT ICA OCCLUSION. 5. COPD IN THE VISUALIZED UPPER LUNGS.
== END | disposition home or self-care (01) ==
LOC: RADCTMAIN 13:12
PROVIDERS: ATTEND Internal Medicine
DX: E04.2 Nontoxic multinodular goiter (principal); I65.21 Occlusion and stenosis of right carotid artery; R59.0 Localized enlarged lymph nodes
CPT/HCPCS: 82565; 84520; 70491; 36415; Q9967

== ENCOUNTER 2021-05-02 12:16 | Day surgery (SDC) | payer MEDICARE, BC ==
[2021-05-02 16:39] VITALS: RESP 18; TEMP 98
[2021-05-02 16:43] VITALS: BP 164/82; PULSE 76
--- NOTE | 2021-05-02 18:01 | US ---
EXAMINATION TYPE: US FNA thyroid first lesion, US FNA first lesion DATE OF EXAM: 05/02/2021 COMPARISON: CT neck 04/10/2021 HISTORY: Thyroid nodule, E04.1 PROCEDURE: Preprocedure preliminary ultrasound imaging of the right thyroid gland demonstrates a contiguous hete rogenous hypoechoic mass spanning from mid to inferior, with questionable extrathyroidal extension. T his region spans at least 2.1 x 1.8 x 2.9 cm AP, transverse, and craniocaudal. There are large shadow ing calcifications associated with the midportion of the mass. Imaging of the left neck demonstrated several left cervical enlarged lymph nodes with prominent color Doppler flow. The largest left cervic al lymph node measuring up to 0.7 by 1.7 cm. Maximal barrier technique was utilized. The overlying skin of the bilateral neck was prepped and drap ed. Ultrasound using sterile technique. The skin overlying the left cervical enlarged lymph node was localized with ultrasound. Lidocaine use d for local anesthesia. 5 passes with a 25-gauge needle were made into the nodule under ultrasound gu idance. Aspirate specimen submitted to cytology. The skin overlying the right thyroid mass was localized with ultrasound. Lidocaine used for local ane sthesia. 6 passes with a 25-gauge needle were made into the nodule under ultrasound guidance. Aspirat e specimen submitted to cytology. Following the procedure hemostasis achieved. No immediate complication. IMPRESSION: 1. Status post ultrasound-guided fine-needle aspiration of large right thyroid nodule. This nodule wa s described as separate lesions on prior comparison, however demonstrates a contiguous appearance thr oughout the mid and inferior right thyroid. Samples were taken diffusely throughout the lesion from t he mid and inferior portions of the gland. 2. Status post ultrasound-guided fine-needle aspiration of left cervical lymphadenopathy. 3. Pathology pending.
== END 2021-05-02 15:25 | disposition home or self-care (01) ==
LOC: RADPROMAIN 12:16
PROVIDERS: ATTEND Nurse Practitioner Family
DX: C96.9 Malignant neoplasm of lymphoid, hematopoietic and related tissue, unspecified (principal)
CPT/HCPCS: 10005; 10006; 88173; 88305

== ENCOUNTER → 2021-05-24 | Outpatient (CLI) | payer MEDICARE, BC ==
[2021-05-24 07:11] LABS: African American GFR (CKD) >90 (>60 ml/min/1.73 sqM); Blood Urea Nitrogen 17 mg/dL (9-20); Non-African American GFR(CKD) 90 (>60 ml/min/1.73 sqM)
--- NOTE | 2021-05-24 09:26 | CT ---
EXAMINATION TYPE: CT chest w con DATE OF EXAM: 05/24/2021 COMPARISON: CT neck 04/10/2021 HISTORY: 86-year-old male C73, Thyroid CA TECHNIQUE: Contiguous axial scanning of the chest after the administration of 100 mL of Isovue 300. Coronal/sagittal reconstructions performed. CT DLP: 388.4mGycm. Automatic exposure control utilized for a dose reduction. FINDINGS: Bulky, nodular thyroid gland with asymmetrically larger right lobe is redemonstrated. Referred for fi ndings on the dedicated soft tissue neck report 04/10/2021. There is nodularity which extends from th e lower pole of the right thyroid gland into the right superior mediastinum/right paratracheal region which is unchanged from 04/10/2021. This extends approximately 4 cm below the level of the sternal no tch. Heart normal size without pericardial effusion. Mild LCA and LAD coronary artery calcifications. 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 A large caliber to the main right and left pulmonary arteries are 2.8 and 3.1 cm, respectively, sugge sting underlying pulmonary arterial hypertension. Mild centrilobular emphysema in the upper lungs. Nonspecific 4 mm peripheral left upper lobe pulmonar y nodule, axial image 14 in the reassessed at follow-up. 3 mm lingular pulmonary nodule, axial image 28. 5 mm inferior lingular pulmonary nodule, axial image 48. Numerous 5 mm and smaller posterior left lower lobe pulmonary nodules. 6 mm anterior right lower lung pulmonary nodule, axial image 36. A few additional right mid and lower lung pulmonary nodules measuring up to 4 mm. 4 mm medial right upper lobe pulmonary nodule, axial image 13. Benign calcified granuloma posterior right upper lung, axial image 22. No consolidation or pleural effusion. Calcified granulomas within the spleen. There is nodular thickening of the left adrenal gland measuri ng 2.1 x 1.4 cm and right adrenal gland measuring 1.3 x 1.2 cm Bones: Advanced degenerative change at the shoulders. Slight levoconvex curvature upper thoracic spin e and scattered mild to moderate degenerative disc disease. IMPRESSION: 1. Multinodular thyroid gland with an asymmetrically larger right lobe. Nodularity extends from the l ower pole of the right lobe into the right superior mediastinum/right paratracheal region, unchanged from 04/10/2021. This extends approximately 4 cm below the level of the sternal notch. 2. There is evidence of prior granulomatous disease. Numerous 6 mm and smaller pulmonary nodules are nonspecific and could represent noncalcified granulomas. The possibility of metastatic pulmonary nodu les is not entirely excluded at this time. Close surveillance recommended. 3. Adrenal gland nodularity measuring up to 2.1 cm on the left and 1.3 cm on the right. Consider adre nal mass protocol CT to further assess. 4. 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 5. 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
== END | disposition home or self-care (01) ==
LOC: RADCTMAIN 06:19
PROVIDERS: ATTEND Otolaryngology
DX: E04.2 Nontoxic multinodular goiter (principal); J43.9 Emphysema, unspecified; I10 Essential (primary) hypertension; I71.2 Thoracic aortic aneurysm, without rupture
CPT/HCPCS: 82565; 84520; 71260; 36415; Q9967

== ENCOUNTER → 2021-08-01 | Outpatient (CLI) | payer MEDICARE, BC ==
[2021-08-01 09:36] LABS: African American GFR (CKD) >90 (>60 ml/min/1.73 sqM); Blood Urea Nitrogen 19 mg/dL (9-20); Non-African American GFR(CKD) 86 (>60 ml/min/1.73 sqM)
--- NOTE | 2021-08-01 10:52 | CT ---
EXAMINATION TYPE: CT chest w con DATE OF EXAM: 08/01/2021 COMPARISON: Chest CT May 24, 2021 HISTORY: Thyroid Cancer CT DLP: 600 mGycm. Automated Exposure Control for Dose Reduction was Utilized. TECHNIQUE: CT scan of the thorax is performed following with IV Contrast, patient injected with 100 ml mL of Isovue 300. FINDINGS: LUNGS: Mild underlying emphysematous changes are redemonstrated. Stable 6 x 4 mm superior right lower lobe pulmonary nodule axial image 23. Stable 2 to 3 mm small nodules right mid lung axial images 28 and 29 and in the lingula on coronal image 60. Stable 5 x 3 mm anterior right basilar nodule axial im age 37. Stable 5 mm adjacent nodules in the lingula axial images 47 and 49. No pleural effusion or pn eumothorax seen bilaterally. No new greater than 5 mm nodules. MEDIASTINUM: There are no new greater than 1 cm hilar or mediastinal lymph nodes. No cardiomegaly o r pericardial effusion is seen. Calcification at level of mitral and aortic valve. Heterogeneous mul tinodular thyroid with right sided enlargement and substernal extension redemonstrated. Ascending aor ta measures 4.0 cm. OTHER: Occasional punctate calcifications scattered throughout the liver and spleen. Underlying levoc onvex scoliosis centered upper thoracic spine. Stable low dense nodularity and nodular thickening lef t greater than right bilateral adrenal glands. IMPRESSION: Stable nonspecific scattered small nodules.
== END | disposition home or self-care (01) ==
LOC: RADCTMAIN 08:40
PROVIDERS: ATTEND Internal Medicine Hematology & Oncology
DX: C73 Malignant neoplasm of thyroid gland (principal)
CPT/HCPCS: 82565; 84520; 71260; 36415; Q9967

== ENCOUNTER → 2022-04-09 | Outpatient (CLI) | payer MEDICARE, BC ==
--- NOTE | 2022-04-09 12:17 | US ---
EXAMINATION TYPE: US carotid duplex BILAT DATE OF EXAM: 04/09/2022 COMPARISON: CLINICAL HISTORY: I65.23 SHEILA ARTERY STENOSIS. Hx right ICA occlusion. Hx Thyroid cancer x 1 year. EXAM MEASUREMENTS: RIGHT: Peak Systolic Velocity (PSV) cm/sec ----- Right CCA: 43.8 ----- Right ICA: 0.0 ----- Right ECA: 93.1 ICA/CCA ratio: 0.9 RIGHT: End Diastole cm/sec ----- Right CCA: 0.0 ----- Right ICA: 0.0 ----- Right ECA: 14.1 LEFT: Peak Systolic Velocity (PSV) cm/sec ----- Left CCA: 82.3 ----- Left ICA: 135.0 ----- Left ECA: 95.6 ICA/CCA ratio: 1.6 LEFT: End Diastole cm/sec ----- Left CCA: 28.0 ----- Left ICA: 46.2 ----- Left ECA: 0.0 VERTEBRALS (direction of flow): Right Vertebral: Antegrade Left Vertebral: Antegrade Rhythm: Arrhythmia No flow detected in right ICA. Left ICA appears tortuous. Plaque bilateral bulbs. Wall thickening s een. Incidental finding: Multiple enlarged lymph nodes seen left neck IMPRESSION: 1. Obstruction of the right internal carotid artery based on ultrasound. Angiography is recommended t o evaluate for critical stenosis with patency. 2. Moderate narrowing between 50 and 69% left internal carotid artery based on velocity. 3. Atheromatous plaquing with bilateral intimal thickening. Criteria for Assigning % of Stenosis / Diameter reduction (Estimation based on the indirect measurements of the internal carotid artery velocities (ICA PSV). 1. Normal (no stenosis)=ICA PSV < 125 cm/s: ratio < 2.0: ICA EDV<40 cm/s. 2. Less than 50% stenosis=ICA PSV < 125 cm/s: ratio < 2.0: ICA EDV<40 cm/s. 3. 50 to 69% stenosis=ICA PSV of 125 to 230 cm/s: ration 2.0 ? 4.0: ICA EDV 40-100 cm/s. 4. Greater than 70% stenosis to near occlusion= ICA PSV > 230 cm/s: ratio > 4.0: ICA EDV > 100 cm/s. 5. Near occlusion= ICA PSV velocities may be low or undetectable: variable ratio and ICA EDV. 6. Total occlusion=unable to detect flow.
== END | disposition home or self-care (01) ==
LOC: RADUSWWP 11:03
PROVIDERS: ATTEND Internal Medicine
DX: I65.23 Occlusion and stenosis of bilateral carotid arteries (principal)
CPT/HCPCS: 93880

== ENCOUNTER → 2022-07-30 | Outpatient (CLI) | payer MEDICARE, BC ==
[2022-07-30 13:35] LABS: African American GFR (CKD) >90 (>60 ml/min/1.73 sqM); Blood Urea Nitrogen 18 mg/dL (9-20); Non-African American GFR(CKD) 86 (>60 ml/min/1.73 sqM)
--- NOTE | 2022-07-30 15:03 | CT ---
EXAMINATION TYPE: CT chest w con DATE OF EXAM: 07/30/2022 COMPARISON: 02/27/2022 HISTORY: hx of thyroid cancer CT DLP: 465.90 mGycm, Automated exposure control for dose reduction was used. CONTRAST: Performed injected with 100mL mL of Isovue 370. TECHNIQUE: Axial images were obtained at 5 mm thick sections. Reconstructed images are reviewed on [employer] computer in the coronal plane. FINDINGS: Right lobe thyroid is enlarged extending into the superior mediastinum. Left lobe thyroid a ppears smaller and more homogenous. Discrete suspicious changes to correlate with patient's known thy roid cancer is not identified. There is some nodularity within the superior mediastinum which could b e associated with abnormal adenopathy or local extension. The appearance is similar to comparison. Extensive punctate nodularity is present greater in the lower lung odonnell present bilaterally. These appear present from comparison study with a similar appearance enlarging nodules or new nodules are n ot clearly identified. No enlarged mediastinal or hilar adenopathy is evident. The ascending aorta diameter at the level o f the main pulmonary artery is 4.1 cm. The main pulmonary artery diameter at the bifurcation is 2.[address] sections are obtained through the upper abdomen. Minimal thickening of the adrenal glands is present. On the left this may be diminished slightly over the interval. The right adrenal gland ap pears stable. IMPRESSIONS: 1. Numerous tiny nodules present greater in the lung bases, present previously. Enlarging or new nodu les are not clearly evident. 2. Enlarged lobular thyroid with adjacent small nodules could be lymphadenopathy within the superior mediastinum adjacent to the thyroid. Findings were present previously.
== END | disposition home or self-care (01) ==
LOC: RADCTMAIN 12:51
PROVIDERS: ATTEND Internal Medicine Hematology & Oncology
DX: Z03.89 Encounter for observation for other suspected diseases and conditions ruled out (principal); C73 Malignant neoplasm of thyroid gland
CPT/HCPCS: 82565; 84520; 71260; 36415; Q9967